=== PATIENT | male | born 1985 | race Caucasian/White ===

== ENCOUNTER 2019-09-30 19:00 | Outpatient (CLI) | payer MEDICAID | END 2019-09-30 19:01 | disposition critical access hospital (66) | LOC: EMS 19:00 | PROVIDERS: ATTEND Surgery | DX: K62.5 Hemorrhage of anus and rectum (principal); R42 Dizziness and giddiness; R44.0 Auditory hallucinations; T18.9XXA Foreign body of alimentary tract, part unspecified, initial encounter; X83.8XXA Intentional self-harm by other specified means, initial encounter | CPT/HCPCS: A0425; A0429; A0999 ==

== ENCOUNTER 2019-09-30 19:16 | Emergency (ER) | payer MEDICAID ==
[2019-09-30 19:48] LABS: MUDS CUTOFF CONCENTRATIONS CUTOFF CONC BELOW:
[2019-09-30 19:53] LABS: BILIRUBIN,URINE NEGATIVE (NEGATIVE); GLUCOSE, URINE (UA) NEGATIVE (NEGATIVE); KETONES,URINE (UA) NEGATIVE (NEGATIVE); LEUKOCYTE ESTERASE, URINE SMALL (NEGATIVE); NITRITE,URINE NEGATIVE (NEGATIVE); OCCULT BLOOD,URINE TRACE-LYSE (NEGATIVE); PROTEIN,URINE NEGATIVE (NEGATIVE); UROBILINOGEN,URINE 0.2 (NORMAL) E.U./dL (NORMAL)
[2019-09-30 19:54] LABS: CLARITY,URINE HAZY (CLEAR)
[2019-09-30 20:01] LABS: BASOPHILS # (AUTO) 0.1 10^3/uL (0.0-0.1); BASOPHILS % (AUTO) 0.5 %; EOSINOPHILS # (AUTO) 0.9 10^3/uL (0.0-0.7); EOSINOPHILS % (AUTO) 8.6 %; HGB - HEMOGLOBIN 11.6 g/dL (14.0-18.0); LYMPHOCYTES # (AUTO) 3.7 10^3/uL (1.5-3.5); LYMPHOCYTES % (AUTO) 34.4 %; MEAN CORPUSCULAR HEMOGLOBIN 25.2 pg (27.0-31.0); MEAN CORPUSCULAR HGB CONC 32.4 g/dL (32.0-36.0); MEAN CORPUSCULAR VOLUME 77.7 fL (80.0-94.0); MEAN PLATELET VOLUME 10.6 fL (7.4-11.4); MONOCYTES # (AUTO) 2.2 10^3/uL (0.0-1.0); MONOCYTES % (AUTO) 20.3 %; NEUTROPHILS # (AUTO) 3.9 10^3/uL (1.5-6.6); PLT - PLATELET COUNT 322 10^3/uL (130-450); RED BLOOD COUNT 4.61 10^6/uL (4.70-6.10); RED CELL DISTRIBUTION WIDTH 20.1 % (12.0-15.0); WHITE BLOOD COUNT 10.8 x10^3/uL (4.8-10.8)
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
[2019-09-30 20:08] LABS: AMPHETAMINE SCREEN,URINE NEGATIVE (NEGATIVE); BENZODIAZEPINES SCREEN, URINE NEGATIVE (NEGATIVE); COCAINE SCREEN URINE NEGATIVE (NEGATIVE); METHADONE SCREEN, URINE NEGATIVE (NEGATIVE); METHAMPHETAMINES SCREEN, URINE NEGATIVE (NEGATIVE); OPIATE SCREEN, URINE NEGATIVE (NEGATIVE); OXYCODONE SCREEN, URINE NEGATIVE (NEGATIVE); PROPOXYPHENE SCREEN, URINE NEGATIVE (NEGATIVE); TRICYCLIC ANTIDEPRESSANT,URINE NEGATIVE (NEGATIVE)
[2019-09-30 20:15] LABS: BACTERIA,URINE Rare /HPF (None Seen); RBC,URINE 0-5 /HPF (0-5); SQUAMOUS EPITHELIAL CELL,UR FEW Squamous (<= Few)
[2019-09-30 20:17] LABS: ACETAMINOPHEN < 10 ug/mL (10-30); ALBUMIN 4.4 g/dL (3.2-5.5); ALBUMIN/GLOBULIN RATIO 1.4 (1.0-2.2); ALKALINE PHOSPHATASE 100 IU/L (42-121); ALT ALANINE AMINOTRANSFERASE 36 IU/L (10-60); AST ASPARTATE AMINOTRANSFERASE 34 IU/L (10-42); BILIRUBIN,TOTAL 0.7 mg/dL (0.2-1.0); BUN - BLOOD UREA NITROGEN 8 mg/dL (6-20); CALCIUM 9.2 mg/dL (8.5-10.3); CARBON DIOXIDE - CO2 27 mmol/L (21-32); CHLORIDE 103 mmol/L (101-111); CREATININE 0.8 mg/dL (0.6-1.2); GFR - MDRD 112 (>89); GLUCOSE 89 mg/dL (70-100); LIPASE 23 U/L (22-51); SALICYLATE < 6.0 mg/dL; SODIUM 137 mmol/L (135-145); TOTAL PROTEIN 7.5 g/dL (6.7-8.2)
[2019-09-30 20:31] LABS: PLATELET MORPHOLOGY NORMAL APPEARANCE (NORMAL)
[2019-09-30 20:32] LABS: PLATELET ESTIMATE, MANUAL NORMAL (130-450,000) (NORMAL)
[2019-09-30] MEDS ORDERED: IOVERSOL 320 100 ML VIAL IVP ONE ×2 (21:14→21:51)
--- NOTE | 2019-09-30 21:15 | XRAY Report ---
Reason: swallowed FB Procedure Date: 09/30/2019 Accession Number: [id number] / [id number] Procedure: XR - Abdomen Acute CPT Code: Final Report FULL RESULT: EXAM: ABDOMINAL SERIES AND PA CHEST EXAM DATE: 09/30/2019 08:31 PM. CLINICAL HISTORY: Swallowed foreign body. COMPARISON: XR ABDOMEN AP 09/25/2019 2:[address] ABDOMEN PELVIS W CONTRAST 09/25/2019 5:18 PM. TECHNIQUE: 2 views abdomen and 1 view chest. FINDINGS: CHEST: Lungs/Pleura: No focal opacities. No effusion or pneumothorax. Mediastinum: Within exam limitations, cardiomediastinal contour is normal. There is a linear 12 mm metallic foreign body projecting over the gastroesophageal junction. This is also visualized on the comparison CT. ABDOMEN: Bowel Gas Pattern: Within normal limits. No dilated loops or abnormal fluid levels. Free Air: There are three linear, needlelike foreign bodies overlying the left lower quadrant corresponding to known abdominal wall needle placement. No new radiopaque foreign body seen. Other: None. IMPRESSION: 1. There is a 12 mm metallic foreign body projecting over the level of the gastroesophageal junction. 2. Three needlelike left lower quadrant abdominal wall foreign bodies again noted. RADIA
--- NOTE | 2019-09-30 22:23 | CT Report ---
Reason: swallowed FB Procedure Date: 09/30/2019 Accession Number: [id number] / [id number] Procedure: CT - Abdomen/Pelvis W CPT Code: Final Report FULL RESULT: EXAM: CT ABDOMEN AND PELVIS EXAM DATE: 09/30/2019 09:48 PM. CLINICAL HISTORY: Swallowed foreign body. COMPARISONS: None. TECHNIQUE: Routine helical CT imaging was performed through the abdomen and pelvis. IV contrast: 100 ML OPTIRAY 320. Enteric contrast: No. Reconstructions: Coronal and sagittal. In accordance with CT protocol optimization, one or more of the following dose reduction techniques were utilized for this exam: automated exposure control, adjustment of mA and/or KV based on patient size, or use of iterative reconstructive technique. FINDINGS: Motion artifact degrades the exam. Atelectasis is present in the lung bases. The visible heart is normal in size. Surgical staple lines are seen in the stomach and jejunum. A linear metallic foreign body measuring approximately 1.5 cm is seen within the stomach lumen. A large amount of food material is also seen in the stomach. No additional intraluminal foreign bodies are seen in the intestines. The intestines are normal in caliber and position. Retained stool is seen throughout the colon. The appendix is normal. There is no evidence of free intraperitoneal air. No ascites is seen. Subcentimeter mesenteric lymph nodes are present without evidence of lymphadenopathy. 3 linear metallic foreign bodies are seen in the soft tissues of the anterior abdominal wall on the left and in the midline consistent with sewing needles. There is surrounding soft tissue edema. The foreign bodies do not extend into the abdominal wall musculature. A small amount of soft tissue edema is seen in the periumbilical region. The liver, gallbladder, pancreas, and adrenal glands are normal. There is no intrahepatic or extrahepatic biliary dilatation. A 3 mm calculus is seen in the right kidney. A 3 mm cortical hypoattenuating lesion is also seen in the right kidney. The kidneys otherwise enhance symmetrically. There is no hydronephrosis. The spleen is absent. The bladder is normal. Calcifications are seen in the prostate gland. There is no free pelvic fluid. The osseous structures are intact. No suspicious lytic or blastic lesions are seen. IMPRESSION: 1. Small ingested metallic foreign body within the stomach surrounded by a large amount of food material. 2. 3 linear metallic foreign bodies in the subcutaneous tissues of the anterior abdominal wall. 3. No evidence of bowel obstruction or free intraperitoneal air. RADIA
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
--- NOTE | 2019-10-01 13:07 | ED Physician Documentation ---
ED Addendum - Addendum Addendum: Patient was signed out to me from Dr. Traylor. Briefly this is a 33-year-old male with a psychiatric history who is presenting with suicidal ideation. He has been medically cleared and evaluated by telempsych and needs admission to a psychiatric facility for decompensation. Patient had no acute events during my shift, he was accepted at [facility], with Dr. Faustin receiving the patient. He was transferred by BLS. 10/01/19 13:06
[2019-10-01] MEDS ORDERED: NICOTINE 21 MG PATCH TOP STA (15:49)
[2019-10-01 16:02] VITALS: BP 127/71
[2019-10-01] MEDS ORDERED: METHOCARBAMOL 500 MG TABLET PO STA (16:07)
== END 2019-10-01 18:10 ==
LOC: ED 19:16
DX: F25.0 Schizoaffective disorder, bipolar type (principal); T18.2XXA Foreign body in stomach, initial encounter; X83.8XXA Intentional self-harm by other specified means, initial encounter; F12.90 Cannabis use, unspecified, uncomplicated; F17.200 Nicotine dependence, unspecified, uncomplicated
CPT/HCPCS: 36415; 74022; 74177; 80053; 80306; 80307; 80320; 80329; 81001; 83690; 84443; 85025; 87086; 99284; 99285; A9270; Q9967; 81003

== ENCOUNTER 2019-10-01 18:14 | Outpatient (CLI) | payer MEDICAID | END 2019-10-01 18:15 | LOC: EMS 18:14 | PROVIDERS: ATTEND Surgery | DX: R45.851 Suicidal ideations (principal) | CPT/HCPCS: A0425; A0428 ==